=== PATIENT | female | born 1960 | race Hispanic/Latino ===

== ENCOUNTER 2019-05-13 13:45 | Outpatient (CLI) | payer BC ==
--- NOTE | 2019-05-28 02:10 | Pulmonary Function Test ---
SPIROMETRY: FVC 1.94 liters, which is 76% of the predicted. FEV1 is 1.67 liters, which is 84% of the predicted. FEV1/FVC ratio is 86. FLOW VOLUME LOOP: FEF 25-75% is 2.10 liters per second, which is 102% of the predicted. MVV is 110% of the predicted. LUNG VOLUMES: Slow vital capacity 1.83 liters which is 86% of the predicted. TLC 3.68 liters which is 91% of the predicted. DLCO is 55% of the predicted. IMPRESSION: Normal pulmonary function except slight decrease in DLCO. JOB# [id number] MIGUEL ANGEL/DION
== END 2019-05-13 13:46 | disposition home or self-care (01) ==
LOC: PF 13:45
PROVIDERS: ATTEND Internal Medicine
DX: J44.9 Chronic obstructive pulmonary disease, unspecified (principal)
CPT/HCPCS: 94010; 94726; 94729

== ENCOUNTER 2020-08-27 12:48 | Outpatient (CLI) | payer BC ==
--- NOTE | 2020-08-27 15:22 | XRay Report ---
Bilateral knees-2 views each INDICATION: PAIN IN LEFT KNEE. COMPARISON: None. IMPRESSION: No acute osseous abnormality. Soft tissues are normal. Normal alignment. 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 Signer Name: Palmer Stephens MD Signed: 08/27/2020 3:18 PM Workstation Name: [id number]
== END 2020-08-27 12:49 | disposition home or self-care (01) ==
LOC: XRAY 12:48
PROVIDERS: ATTEND Internal Medicine
DX: M17.0 Bilateral primary osteoarthritis of knee (principal); M25.562 Pain in left knee